=== PATIENT | male | born 1980 | race African-American/Black ===

== ENCOUNTER 2017-05-12 13:51 | Emergency (ER) | payer SELFPAY ==
--- NOTE | 2017-05-12 14:56 | RAD ---
CHEST 1 VIEW: Date: 05/12/17 HISTORY: Fever and cough. COMPARISON: Chest 1 view dated 10/24/13. FINDINGS: Lungs are clear. No pneumothorax or effusion. Cardiac silhouette and mediastinal contours within norm al limits. IMPRESSION: No acute intrathoracic abnormality. POS: [facility]
== END 2017-05-12 15:06 | disposition home or self-care (01) ==
LOC: ERS 13:51
DX: J06.9 Acute upper respiratory infection, unspecified (principal); I10 Essential (primary) hypertension; F17.210 Nicotine dependence, cigarettes, uncomplicated; F41.9 Anxiety disorder, unspecified; Z79.899 Other long term (current) drug therapy
CPT/HCPCS: 71045; 87804; 99406

== ENCOUNTER 2017-08-29 22:45 | Emergency (ER) | payer SELFPAY | END 2017-08-30 00:29 | disposition home or self-care (01) | LOC: ERS 22:45 | DX: L30.9 Dermatitis, unspecified (principal); I10 Essential (primary) hypertension; F41.9 Anxiety disorder, unspecified; F17.210 Nicotine dependence, cigarettes, uncomplicated; Z79.899 Other long term (current) drug therapy | CPT/HCPCS: 99282 ==

== ENCOUNTER 2017-10-10 06:13 | Emergency (ER) | payer SELFPAY ==
[2017-10-10] MEDS ORDERED: Adacel (T-DAP) 0.5 ML VIAL ONE (06:19)
== END 2017-10-10 07:05 | disposition home or self-care (01) ==
LOC: ERS 06:13
DX: S61.211A Laceration without foreign body of left index finger without damage to nail, initial encounter (principal); I10 Essential (primary) hypertension; F17.210 Nicotine dependence, cigarettes, uncomplicated; W26.8XXA Contact with other sharp object(s), not elsewhere classified, initial encounter
CPT/HCPCS: 12001; 90471; 90715

== ENCOUNTER 2017-11-04 05:18 | Emergency (ER) | payer SELFPAY ==
[2017-11-04 06:20] LABS: #Basophils 0.1 thou/uL (0.0-0.2); #Eosinphils 0.1 thou/uL (0.0-0.7); #Lymphocytes 2.6 thou/uL (1.20-3.40); #Monocytes 0.8 thou/uL (0.11-0.59); #Neutrophils 5.4 thou/uL (1.40-6.50); %Basophils 0.6 % (0.0-1.0); %Eosinophils 1.3 % (0.0-10.0); %Lymphocytes 29.4 % (21.0-51.0); %Monocytes 8.4 % (0.0-10.0); %Neutrophils 60.3 % (42.0-75.0); Hemoglobin 15.9 g/dL (14.0-18.0); Mean Corpuscular HGB CONC 35.4 g/dL (32.0-36.0); Mean Corpuscular Hemoglobin 31.4 pg (27.0-31.0); Mean Corpuscular Volume 88.7 fL (78.0-98.0); Platelet Count 206 thou/uL (130-400); Red Blood Cell (RBC) Count 5.08 mill/uL (4.70-6.10)
[2017-11-04] MEDS ORDERED: Ondansetron HCl/PF 4 MG/2 ML Vial ONE ×2 (06:22→08:13)
[2017-11-04] MEDS ORDERED: Lidocaine Viscous Sol 2% 15 ml UD Cup ONE (06:38)
[2017-11-04] MEDS ORDERED: Mag-Al 1200 mg/1200 mg/30 ML UDCUP ONE (06:38)
[2017-11-04 06:41] LABS: ALT (SGPT) 35 U/L (8-55); AST (SGOT) 21 U/L (5-34); Albumin 4.5 g/dL (3.5-5.0); Alkaline Phosphatase 95 U/L (40-150); Anion Gap 12 mmol/L (10-20); BUN (Urea Nitrogen) 12 mg/dL (8.9-20.6); Bilirubin, Total 0.5 mg/dL (0.2-1.2); Calc. Creatinine Clearance 0 mL/min (70-130); Calcium 9.6 mg/dL (7.8-10.44); Carbon Dioxide 24 mmol/L (22-29); Chloride 105 mmol/L (98-107); Estimated GFR-MDRD 90; Globulin 3.2 g/dL (2.4-3.5); Glucose 156 mg/dL (70-105); Lipase 117 U/L (8-78); Protein, Total 7.7 g/dL (6.0-8.3); Sodium 137 mmol/L (136-145)
[2017-11-04] MEDS ORDERED: Morphine 4 MG/ML VIAL ONE (08:15)
[2017-11-04 08:58] LABS: Bilirubin Negative (Negative); Blood, Urine Negative (Negative); Clarity CLEAR (Clear); Glucose, Urine (Dipstick) Negative (Negative); Leukocyte Negative (Negative); Nitrite Negative (Negative); Protein, Urine (Dipstick) Trace mg/dL (Neg-Trace); Specific Gravity, Urine 1.045 (1.002-1.036); Urobilinogen 0.2 mg/dL (0.2-1.0)
[2017-11-04] MEDS ORDERED: Sucralfate 1 GM/10 ML UDCUP ONE (09:26)
--- NOTE | 2017-11-04 09:30 | CT ---
CT OF THE ABDOMEN AND PELVIS WITH IV CONTRAST: COMPARISON: Prior CT of the abdomen and pelvis without contrast dated 11/11/15. FINDINGS: The lung bases are clear. There is mild fatty infiltration of the liver. The pancreas, adrenal glands, and right kidney are normal-appearing. Cyst involving the left mid kid nancy is slightly enlarged now measuring 1.9 cm. No hydronephrosis is evident. No free fluid or enlarged lymph nodes are evident. There is a normal appendix in the right lower quadrant. The colon is largely decompressed. Small bowel is of normal caliber. No drainable fluid collection is evident within the pelvis. No definite acute osseous abnormality is evident. IMPRESSION: No definite intraabdominal or intrapelvic abnormality. Slight interval enlargement of the left renal cyst. POS: [facility]
[2017-11-04] MEDS ORDERED: ISOVUE-370 76%-LOCM 1 ML ONE (14:55)
== END 2017-11-04 09:36 | disposition home or self-care (01) ==
LOC: ERS 05:18
DX: R11.2 Nausea with vomiting, unspecified (principal); R19.7 Diarrhea, unspecified; I10 Essential (primary) hypertension; F17.210 Nicotine dependence, cigarettes, uncomplicated
CPT/HCPCS: 36415; 74177; 80053; 81003; 83690; 85025; 96361; 96374; 96375; 96376; J2270; J2405

== ENCOUNTER 2018-06-21 21:16 | Emergency (ER) | payer SELFPAY | END 2018-06-21 22:14 | disposition left against medical advice (07) | LOC: ERS 21:16 | DX: Z53.21 Procedure and treatment not carried out due to patient leaving prior to being seen by health care provider (principal) | CPT/HCPCS: 93005 ==

== ENCOUNTER 2018-08-02 22:46 | Emergency (ER) | payer SELFPAY ==
[2018-08-02 23:20] LABS: #Basophils 0.1 thou/uL (0.0-0.2); #Eosinphils 0.1 thou/uL (0.0-0.7); #Lymphocytes 4.2 thou/uL (1.20-3.40); #Monocytes 0.7 thou/uL (0.11-0.59); #Neutrophils 3.7 thou/uL (1.40-6.50); %Basophils 0.8 % (0.0-1.0); %Eosinophils 1.2 % (0.0-10.0); %Lymphocytes 48.4 % (21.0-51.0); %Monocytes 7.8 % (0.0-10.0); %Neutrophils 41.9 % (42.0-75.0); Mean Corpuscular HGB CONC 34.1 g/dL (32.0-36.0); Mean Corpuscular Hemoglobin 30.4 pg (27.0-31.0); Mean Corpuscular Volume 89.3 fL (78.0-98.0); Mean Platelet Volume 9.2 fL (7.4-10.4); Platelet Count 216 thou/uL (130-400); RBC Distribution Width 11.9 % (11.5-14.5); Red Blood Cell (RBC) Count 4.94 mill/uL (4.70-6.10); White Blood Cell (WBC) Count 8.7 thou/uL (4.8-10.8)
--- NOTE | 2018-08-02 23:25 | RAD ---
AP VIEW CHEST: 08/02/18 HISTORY: Dizziness. 37-year-old male. AP view chest is obtained. The lungs are well aerated. No evidence of active intrathoracic disease se en. No evidence of effusions, pneumonia, or pneumothorax seen. IMPRESSION: Unremarkable. AP view chest. POS: [facility]
--- NOTE | 2018-08-02 23:26 | CT ---
CT BRAIN: 08/02/18 HISTORY: 37-year-old presents with history of dizziness after getting out of shower. Noncontrast enhanced CT images of the brain is obtained from the base of the skull through the verte x. Brain and bone windows obtained. CT images of the brain demonstrate no significant evidence of intracranial masses, hemorrhages, strok es or contusions. IMPRESSION: Normal CT brain. POS: [facility]
[2018-08-02 23:42] LABS: ALT (SGPT) 31 U/L (8-55); AST (SGOT) 29 U/L (5-34); Albumin 4.2 g/dL (3.5-5.0); Alkaline Phosphatase 101 U/L (40-150); Anion Gap 15 mmol/L (10-20); BUN (Urea Nitrogen) 9 mg/dL (8.9-20.6); Bilirubin, Total 0.2 mg/dL (0.2-1.2); Calc. Creatinine Clearance 0 mL/min (70-130); Calcium 9.3 mg/dL (7.8-10.44); Carbon Dioxide 25 mmol/L (22-29); Chloride 102 mmol/L (98-107); Estimated GFR-MDRD Greater than 90; Globulin 3.4 g/dL (2.4-3.5); Glucose 144 mg/dL (70-105); Potassium 4.7 mmol/L (3.5-5.1); Protein, Total 7.6 g/dL (6.0-8.3); Sodium 137 mmol/L (136-145)
== END 2018-08-03 00:13 | disposition home or self-care (01) ==
LOC: ERS 22:46
DX: I10 Essential (primary) hypertension (principal); F17.210 Nicotine dependence, cigarettes, uncomplicated
CPT/HCPCS: 70450; 71045; 80053; 83880; 84484; 85025; 93005

== ENCOUNTER 2018-08-14 18:56 | Emergency (ER) | payer SELFPAY ==
[2018-08-14] MEDS ORDERED: Acetaminophen 500 MG TAB ONE (19:42)
[2018-08-14] MEDS ORDERED: Bicillin LA 1.2 MILLION UNITS/2 ML SYRINGE ONE (21:23)
[2018-08-14] MEDS ORDERED: Dexamethasone 10 MG/ML VIAL ONE (21:23)
== END 2018-08-14 21:30 | disposition home or self-care (01) ==
LOC: ERS 18:56
DX: J02.0 Streptococcal pharyngitis (principal); I10 Essential (primary) hypertension; F17.210 Nicotine dependence, cigarettes, uncomplicated
CPT/HCPCS: 87430; 96372; J0561; J1100

== ENCOUNTER → 2018-10-02 | Emergency (ER) | payer SELFPAY | LOC: ERS 22:00 | DX: S29.012A Strain of muscle and tendon of back wall of thorax, initial encounter (principal); X50.1XXA Overexertion from prolonged static or awkward postures, initial encounter; Y99.0 Civilian activity done for income or pay | CPT/HCPCS: 99283 ==